=== PATIENT | female | born 1985 | race Caucasian/White ===

== ENCOUNTER 2017-07-23 00:33 | Emergency (ER) | payer MEDICAID ==
[2017-07-23 01:51] LABS: BASOPHIL % 0.4 % (0-2); PLATELET COUNT 321 x10^3mcL (130-400); RED CELL DISTRIBUTION WIDTH 13.8 % (11.5-14.5)
[2017-07-23 01:53] LABS: CALCIUM 8.8 mg/dL (8.5-10.1); CARBON DIOXIDE 32.2 mmol/L (21-32); CHLORIDE SERUM 104 mmol/L (98-107); CREATININE SERUM 0.8 mg/dL (0.6-1.0); GFR1 > 60 mL/min; GLUCOSE SERUM 102 mg/dL (74-106); POTASSIUM SERUM 3.5 mmol/L (3.5-5.1); SODIUM SERUM 137 mmol/L (136-145)
[2017-07-23 01:57] LABS: ALBUMIN 3.9 g/dL (3.4-5.0); ALKALINE PHOSPHATASE 81 U/L (46-116); ALT/SGPT 19 U/L (14-59); AST/SGOT 13 U/L (15-37); TOTAL PROTEIN, SERUM 7.9 g/dL (6.4-8.2)
[2017-07-23 02:04] LABS: microscopic required? YES; urine erythrocyte NEGATIVE (NEGATIVE)
[2017-07-23 04:27] VITALS: BP 127/74
== END 2017-07-23 04:27 | disposition home or self-care (01) ==
LOC: ED 00:33
PROVIDERS: Emergency Medicine
DX: N73.0 Acute parametritis and pelvic cellulitis (principal); N83.201 Unspecified ovarian cyst, right side; Z79.1 Long term (current) use of non-steroidal anti-inflammatories (NSAID); Z79.899 Other long term (current) drug therapy; Z88.5 Allergy status to narcotic agent
CPT/HCPCS: 36415; J0696

== ENCOUNTER 2020-02-04 13:55 | Emergency (ER) | payer OTHER ==
[~2020-02-04] VITALS: Ht 165.1 cm; Wt 78.9 kg
[2020-02-04 14:09] VITALS: Ht 165.1 cm; Wt 78.9 kg
[2020-02-04 16:42] VITALS: BP 138/72
== END 2020-02-04 16:42 | disposition home or self-care (01) ==
LOC: ED 13:55
DX: B02.29 Other postherpetic nervous system involvement (principal); Z88.5 Allergy status to narcotic agent

== ENCOUNTER 2020-04-05 19:50 | Emergency (ER) | payer OTHER ==
[~2020-04-05] VITALS: Ht 165.1 cm; Wt 78.5 kg
[2020-04-05 19:55] VITALS: Ht 165.1 cm; Wt 78.5 kg
[2020-04-05 22:14] VITALS: BP 117/71
== END 2020-04-05 22:14 | disposition home or self-care (01) ==
LOC: ED 19:50
DX: B02.8 Zoster with other complications (principal); Z88.5 Allergy status to narcotic agent; Z88.1 Allergy status to other antibiotic agents
CPT/HCPCS: J1885